=== PATIENT | male | born 1955 | race African-American/Black ===

== ENCOUNTER 2017-04-14 22:23 | Emergency (ER) | payer SELFPAY ==
[~2017-04-14] VITALS: Ht 172.7 cm; Wt 70.0 kg
[~2017-04-14 22:23] MED LIST: MULT-506 PO
[2017-04-14 22:42] VITALS: BP 121/87; PULSE 70; TEMP 36.4; O2SAT 98; Ht 172.7 cm; Wt 70.0 kg
[2017-04-14] MEDS ORDERED: BP MED PO (22:54)
--- NOTE | 2017-04-14 22:57 | DIAGNOSTIC IMAGING REPORT ---
CHEST ONE VIEW PORTABLE CLINICAL HISTORY: Atypical chest pain COMPARISON STUDY: 02/17/2016 FINDINGS: The cardiac and mediastinal contours are normal. There is no evidence of focal pulmonary consolidation. There is no evidence of failure. No pleural effusions are visualized.[ IMPRESSION: No active disease in the chest. Electronically signed by: Ryan Lozoya M.D. 04/14/2017 10:56 PM Dictated Date/Time: 04/14/2017 10:56 PM
--- NOTE | 2017-04-15 00:34 | EMERGENCY ROOM VISIT NOTE ---
History First contact with patient: 22:27 Chief Complaint: ILLNESS Stated Complaint: ILLNESS History of Present Illness The patient is a 61 year old male who presents to the Emergency Room with complaints of nausea. Patient was brought in by EMS as he was stopped by the police for possible swallowing a foreign body and throwing his crack pipe out the window. He was also diaphoretic but now this is resolved. Patient denies any current medical complaints and is demanding to leave. Patient states he had a few alcoholic beverages but does not feel intoxicated. Patient denies chest pain, dyspnea, abdominal pain, fever, chills or any other medical complaints. He denies swallowing any foreign bodies. Review of Systems See HPI for pertinent positives & negatives. A total of 10 systems reviewed and were otherwise negative. Past Medical/Surgical History Medical Problems: (1) Asthma (2) Stomach problems Family History Diabetes mellitus FH: heart disease FHx: cancer Hypertension Social History Smoking Status: Current Every Day Smoker Marital Status: in relationship Housing Status: lives with significant other Occupation Status: employed Current/Historical Medications Scheduled PRN [Bp Med], Unknown Dose PO DAILY PRN for HNT Allergies Coded Allergies: No Known Allergies (Unverified , 08/18/16) Physical Exam Vital Signs Date Time Temp Pulse Resp B/P Pulse Ox O2 Delivery O2 Flow Rate FiO2 04/14/17 22:42 98 Room Air 04/14/17 22:42 36.4 70 20 121/87 98 Room Air 04/14/17 22:42 98 Room Air Physical Exam VITALS: Vitals are noted on the nurse's note and reviewed by myself. Vital signs stable. GENERAL: Poorly kempt -[place] male with EtOH odor, in no acute distress , nondiaphoretic, well-developed well-nourished. SKIN: The skin was without rashes, erythema, edema, or bruising. There is no tenting of the skin. Capillary reflex less than 2 seconds. HEAD: Normocephalic atraumatic. EARS: External auditory canals clear, tympanic membranes pearly varghese without erythema or effusion bilaterally. EYES: Pupils equal round and reactive to light and accommodation. Conjunctivae with injection, sclerae without icterus. Extraocular movements intact. NOSE: Patent, turbinates without inflammation or discharge. MOUTH: Mucous membranes moist. Pharynx without erythema or exudate. Uvula midline. Airway patent. Tongue does not deviate. NECK: Supple without nuchal rigidity. No lymphadenopathy. No thyromegaly. Cervical spine is nontender. No JVD. HEART: Regular rate and rhythm without murmurs gallops or rubs. LUNGS: Clear to auscultation bilaterally without wheezes, rales or rhonchi. No dullness to percussion. No retractions or accessory muscle use. ABDOMEN: Positive bowel sounds x 4. Normal tympanic percussion. Soft, nontender, without masses or organomegaly. Julien sign negative. No guarding or rebound tenderness. MUSCULOSKELETAL: No muscle atrophy, erythema, or edema noted. NEURO: Patient was alert and oriented to person place and time. Normal sensation to light and sharp touch. No focal neurological deficits. Medical Decision & Procedures Laboratory Results Test 04/14/17 22:35 Creatine Kinase MB Ratio (0-3.0) ED Course Prior records/ancillary studies reviewed and summarized above. Nursing notes reviewed. Additional history obtained from EMS The patient's history was concerning for nausea and brought in for evaluation. Differential diagnosis: Etiologies such as also foreign body ingestion, substance abuse, alcohol, toxic , metabolic, infection, hypo/hyperglycemia, electrolyte abnormalities, cardiac sources, intracerebral event, toxicologic, neurologic, as well as others were entertained. Physical examination: As above. ER treatment provided: Patient refused any testing and is demanding to leave On reassessment the patient felt better. Diagnostics interpretation by me: ECG: Normal sinus, normal intervals, no acute ST-T wave changes. Impression normal sinus rhythm interpreted by myself Imaging studies: CHEST ONE VIEW PORTABLE CLINICAL HISTORY: Atypical chest pain COMPARISON STUDY: 02/17/2016 FINDINGS: The cardiac and mediastinal contours are normal. There is no evidence of focal pulmonary consolidation. There is no evidence of failure. No pleural effusions are visualized.[ IMPRESSION: No active disease in the chest. Electronically signed by: Ryan Lozoya M.D. I reviewed the x-ray and concerns whether it is the blood pressure cuff or foreign body on the chest x-ray. Patient was strongly encouraged to stay in the hospital for evaluation and workup and demanded to leave. He understands the risks that he is at risk for heart attack, stroke, , sepsis. He signed out AMA. He was also called several times as it was concerning for possible foreign body ingestion. No contact was made though. The pt informed about the findings as listed above. All questions were answered and pt pleased with the treatment. Return instructions were outlined and the patient was discharged in stable condition. Referral: The patient was referred back to primary care physician for follow-up in 2 to 3 days for a recheck of the current condition. case reviewed with my Attending Medical Decision As above Impression Primary Impression: Nausea Additional Impression: possible swallowed foreign body Departure Information Dispostion Against Medical Advice Condition GOOD Forms WORK / SCHOOL INSTRUCTIONS, HOME CARE DOCUMENTATION FORM, IMPORTANT VISIT INFORMATION Patient Instructions My [employer] [place] Additional Instructions Your are leaving AGAINST MEDICAL ADVICE. You're at risk for infection, , heart attack. You have swallowed a foreign body. You're at risk for perforation and/or sepsis and/or heart attack from this. Recommend that you do not drive as you smell of alcohol. Recommend no drug use. Follow-up with family care doctor tomorrow. Return to the ER at anytime for further workup, chest pain, dyspnea or any other worsening signs or symptoms. Problem Qualifiers
== END 2017-04-14 23:10 | disposition left against medical advice (07) ==
LOC: EDBD 22:23 → C.EDB 22:25
DX: R11.0 Nausea (principal); J45.909 Unspecified asthma, uncomplicated; Z83.3 Family history of diabetes mellitus; Z82.49 Family history of ischemic heart disease and other diseases of the circulatory system

== ENCOUNTER 2017-07-09 11:36 | Emergency (ER) | payer SELFPAY ==
[~2017-07-09] VITALS: Ht 175.3 cm; Wt 80.8 kg
[~2017-07-09 11:36] MED LIST changes: +BP MED PO; -MULT-506 PO
[2017-07-09 11:45] VITALS: TEMP 36.7; Ht 175.3 cm; Wt 80.8 kg
[2017-07-09] MEDS ORDERED: PROPARACAINE HCL 0.5% OP SOLN 15 ML BTL ONE (11:51)
[2017-07-09] MEDS ORDERED: ERYOPO OPL (14:22)
[2017-07-09] MEDS ORDERED: OXYC-57 PO (14:22)
--- NOTE | 2017-07-09 14:24 | EMERGENCY ROOM VISIT NOTE ---
ED Visit Note First contact with patient: 12:17 CHIEF COMPLAINT: Foreign body of the eye HISTORY OF PRESENT ILLNESS: This 61-year-old male patient presents to the emergency department, ambulatory, alone, complaining of pain and foreign body sensation in the left eye. The patient states "a couple of days ago" he was cutting a tree down. He states at that time, he began experiencing a foreign body sensation. The patient was wearing regular glasses at the time, but was not wearing safety glasses. The patient states pain is now getting worse, and she is experiencing some blurry vision. There has been a constant moderate pain and irritation, redness and tearing in the eye. The vision has not been decreased over all. The patient does not wear contacts. The patient rates the pain as 10/10. The patient has not had previous injuries to this eye. Tetanus shot is up to date. The patient does not have an established release of information specialist. REVIEW OF SYSTEMS: A 6 system review of systems was completed with positives and pertinent negatives listed in the HPI. ALLERGIES: None MEDICATIONS: None PMH: None SOCIAL HISTORY: The patient lives locally with family. He admits to smoking one half pack cigarettes per day. The patient denies alcohol or drug use. PHYSICAL EXAM: Vital Signs: Reviewed Nurse's notes, vital signs stable. Visual acuity 20/40 bilaterally. GENERAL: This is a 61-year-old male, in no acute distress, but who is uncomfortable from the eye problem. Well-developed well- nourished. EYES: The pupils are equal round and reactive to light and accommodation. EOMs are full and without tenderness. There is watery discharge from the left eye which is injected. There is and abrasion visible on the cornea with fluorescein stain. There is no obvious foreign body visible under the eyelid after lid eversion. No obvious foreign body was seen embedded in the cornea under slit lamp exam. The cornea was clear and no hyphema was seen. Fluorescein uptake was observed with ultraviolet light significant for a corneal abrasion. EMERGENCY DEPARTMENT COURSE: I examined the patient. Alcaine 2 drops were placed in the patient's left eye. A slit lamp exam was performed as above. Verbal consent was obtained to perform the procedure. Alexandr Lens Irrigation was initiated. The patient did note some improvement in his symptoms after irrigation. No obvious foreign body noted after irrigation on examination. The patient was discharged home in good condition. DIFFERENTIAL DIAGNOSIS: Corneal abrasion, foreign body, conjunctivitis, and others DIAGNOSIS: Foreign body with subsequent corneal abrasion of the left eye DISCHARGE INSTRUCTIONS AND TREATMENT: You have been treated in the Emergency Department today for your Corneal Abrasion. You have been prescribed Percocet to be used for pain control. This is a narcotic medication. You cannot drive or consume alcohol while on this medicine. This medicine should only be used for pain that cannot be controlled with oaad-rge-qmxfode pain medicines. You have been prescribed Erythromycin Opthalmic ointment. This is an antibiotic ointment which will help prevent an infection from developing in your affected eye. You should apply a 1 cm ribbon of the ointment to the lower part of the affected eye up to 6 times per day for the next 10 days. For pain control, you can use the following hwvd-xfx-droyajp medicines (if >12 yo): - Regular strength (325mg/tab) Tylenol (acetaminophen) 2 tabs every 4-6 hours as needed. Do not exceed 12 tablets in a 24 hour period. Avoid taking more than 4 grams (4000 mg) of Tylenol per day. This includes any other sources of acetaminophen you may take on a regular basis. - Regular strength (200 mg/tab) Advil (ibuprofen) 1-2 tabs every 4-6 hours as needed. Do not exceed a dose of 3200 mg per day. You should relax in a quiet, dark place for the rest of the day. You should wear sunglasses while outside for the next few days until your eyes are not as sensitive to the light. You should schedule a follow-up appointment in 2-3 days with your Primary Care Provider or established Eye Doctor ([facility]) for further evaluation and treatment of your Corneal Abrasion. We did schedule you with an release of information specialist appointment. This is scheduled for tomorrow morning at 10:30. Return to the Emergency Department if your current symptoms worsen despite treatment course outlined above, or if you develop any of the following symptoms : intractable pain, visual disturbances, loss of vision, increased redness, swelling, drainage, or if you develop a fever. Problem List Medical Problems: (1) Asthma Status: Chronic (2) Stomach problems Status: Chronic Current/Historical Medications Scheduled Erythromycin Opth (Erythromycin Opth), 0.5 INCH OPL QID Scheduled PRN Oxycodone/Acetaminophen 5MG/325MG (Percocet 5MG/325MG), 1 TAB PO Q4-6H PRN for Pain Allergies Coded Allergies: No Known Allergies (Unverified , 08/18/16) Vital Signs Date Time Temp Pulse Resp B/P (MAP) Pulse Ox O2 Delivery O2 Flow Rate FiO2 07/09/17 14:35 71 18 149/83 98 Room Air 07/09/17 13:02 79 18 142/86 98 Room Air 07/09/17 11:45 36.7 73 18 133/88 97 Room Air Medications Administered Medications (Trade) Dose Ordered Sig/Dawit Route Start Time Stop Time Status Last Admin Dose Admin Proparacaine HCl (Alcaine 0.5% Oph Soln) 225 drops STK-MED ONCE .ROUTE 07/09/17 11:51 07/09/17 11:52 DC 07/09/17 11:51 225 DROPS Departure Information Impression Primary Impression: Corneal abrasion Dispostion Home / Self-Care Condition GOOD Prescriptions Oxycodone/Acetaminophen 5MG/325MG (PERCOCET 5MG/325MG) Tab 1 TAB PO Q4-6H Y for Pain for 2 Days, #12 TAB For Initial Treatment Prov: Sahra Tamayo PA-C 07/09/17 Erythromycin Opth (ERYTHROMYCIN OPTH) 12 Appln/3.5 Gm Oint 0.5 INCH OPL QID for 7 Days, #1 TUBE Prov: Sahra Tamayo PA-C 07/09/17 Referrals Alexandro Gillespie D.O.Int.Med. (PCP) Patient Instructions ED Eye Injury Corneal Abrasion, My [facility] Additional Instructions You have been treated in the Emergency Department today for your Corneal Abrasion. You have been prescribed Percocet to be used for pain control. This is a narcotic medication. You cannot drive or consume alcohol while on this medicine. This medicine should only be used for pain that cannot be controlled with wwea-lad-rnixeab pain medicines. You have been prescribed Erythromycin Opthalmic ointment. This is an antibiotic ointment which will help prevent an infection from developing in your affected eye. You should apply a 1 cm ribbon of the ointment to the lower part of the affected eye up to 6 times per day for the next 10 days. For pain control, you can use the following xzpi-hzu-oupfydm medicines (if >12 yo): - Regular strength (325mg/tab) Tylenol (acetaminophen) 2 tabs every 4-6 hours as needed. Do not exceed 12 tablets in a 24 hour period. Avoid taking more than 4 grams (4000 mg) of Tylenol per day. This includes any other sources of acetaminophen you may take on a regular basis. - Regular strength (200 mg/tab) Advil (ibuprofen) 1-2 tabs every 4-6 hours as needed. Do not exceed a dose of 3200 mg per day. You should relax in a quiet, dark place for the rest of the day. You should wear sunglasses while outside for the next few days until your eyes are not as sensitive to the light. You should schedule a follow-up appointment in 2-3 days with your Primary Care Provider or established Eye Doctor ([facility]) for further evaluation and treatment of your Corneal Abrasion. We did schedule you with an release of information specialist appointment. This is scheduled for tomorrow morning at 10:30. Return to the Emergency Department if your current symptoms worsen despite treatment course outlined above, or if you develop any of the following symptoms : intractable pain, visual disturbances, loss of vision, increased redness, swelling, drainage, or if you develop a fever. Problem Qualifiers Primary Impression: Corneal abrasion Encounter type: initial encounter Laterality: left Qualified Codes: S05.02XA - Injury of conjunctiva and corneal abrasion without foreign body, left eye, initial encounter
[2017-07-09 14:35] VITALS: BP 149/83; PULSE 71; O2SAT 98
== END 2017-07-09 14:43 | disposition home or self-care (01) ==
LOC: C.EDB 11:37 → C.EDD 14:43
DX: S05.02XA Injury of conjunctiva and corneal abrasion without foreign body, left eye, initial encounter (principal); X58.XXXA Exposure to other specified factors, initial encounter; J45.909 Unspecified asthma, uncomplicated; Z87.19 Personal history of other diseases of the digestive system

== ENCOUNTER 2017-07-19 09:35 | Emergency (ER) | payer SELFPAY ==
[~2017-07-19] VITALS: Ht 175.3 cm; Wt 79.3 kg
[~2017-07-19 09:35] MED LIST changes: -BP MED PO; +ERYOPO OPL
[2017-07-19 09:36] VITALS: TEMP 36.4; Ht 175.3 cm; Wt 79.3 kg
[2017-07-19] MEDS ORDERED: OXYC-57 PO (10:25)
[2017-07-19] MEDS ORDERED: VALA1TAB31 PO (10:25)
[2017-07-19] MEDS ORDERED: OXYCODONE/ACETAMINOPHEN 5-325 TAB PO STA (10:27)
[2017-07-19] MEDS ORDERED: CIPROFLOXACIN HCL 0.3% OP SOLN 2.5 ML BTL OP ONE (10:30)
[2017-07-19 11:16] VITALS: BP 127/72; PULSE 88; O2SAT 98
--- NOTE | 2017-07-19 18:40 | EMERGENCY ROOM VISIT NOTE ---
ED Visit Note First contact with patient: 09:46 CHIEF COMPLAINT: Left eye pain HISTORY OF PRESENT ILLNESS: This 61-year-old -Malaysian male patient presents to ER for evaluation of left eye pain that developed 10 days ago. since then there has been a constant moderate pain and irritation, redness and tearing in the eye. Initial onset was after helping a friend cut down a tree. He believes he got sawdust in his eye. He was seen here at that time. He had Alexandr lens irrigation and was found to have a corneal abrasion. No foreign body was found at that time. Ophthalmology appointment was set up for him the next day. He did not go. He thought it would get better on its own. He has been using erythromycin ophthalmic ointment without improvement. Has used all of his Percocet. No involvement of the other eye. There is a mild blurring of vision at times and light significantly bothers the eye. The vision has not been decreased over all. No headache, nausea, or vomiting. Pain is 8/10. A Female friend accompanies him today. No new trauma. Pain is become worse over the last 2 days. REVIEW OF SYSTEM: HEENT: No dizziness, hearing loss, or tinnitus. There is no difficulty swallowing and no oral lesions are present. PULMONARY: No shortness of breath, sputum production or hemoptysis. CARDIOVASCULAR: No chest pain, palpitations, shortness of breath or peripheral edema. GASTROINTESTINAL: No diarrhea, constipation, nausea, vomiting, or abdominal pain. GENITOURINARY: No dysuria, frequency, urgency or nocturia. NEUROLOGIC: No weakness, muscle tenderness, epilepsy or history of neurological problems. MUSCULOSKELETAL: No history of joint tenderness/swelling. No history of arthritis or arthralgias. SKIN: No rashes or lesions. PSYCHIATRIC: No history of depression or mental illness. ENDOCRINE: No history of diabetes, thyroid disorders, or abnormal hair growth. PMH: Supplemental sheet was not completed. Previous surgeries: None Medical history: Benign Current medications: Reviewed and filed in patient's chart Allergies: NKDA SOCIAL HISTORY: Patient lives at home. Positive tobacco use, no EtOH use. Unemployed. PHYSICAL EXAM: Vital Signs: Afebrile. Reviewed and filed in patient's chart. GENERAL: Well-developed, well-nourished, middle-aged -Malaysian male, in obvious discomfort. No acute distress. He is sitting on the bed. Alert and oriented. Skin: Warm and dry with good turgor. No rashes or lesions. No ecchymosis or erythema. The patient is not diaphoretic. No abrasions. No evidence of periorbital cellulitis. HEENT: Normocephalic, atraumatic. The pupils are round, equal, and react to light. EOMs are full. There is discharge of clear tears from the left eye which is also injected. Funduscopic exam of both eyes was unremarkable. Slit lamp examination was performed after Alcaine anesthesia and staining with fluorescein. There is no foreign body visible under the eyelid even after lid eversion. No foreign body was seen embedded in the cornea. The cornea was diffusely irritated with extensive punctate uptake. No hyphema was seen. Anterior chamber is without sediment. Fluorescein uptake was observed at her the central portion of the eye, just inferior to the pupil. A large dendritic lesion is present. There is some cloudiness at the base. I did stain the right eye to evaluate it as well. It is entirely clear and not involved. DIAGNOSIS: Dendritic keratitis left eye. DISCHARGE INSTRUCTIONS AND TREATMENT: Patient was educated regarding today's findings. Conservative care measures were discussed. I did speak with Dr. Samayoa regarding this patient. He would like to see him in the office tomorrow. Patient may call tomorrow for an appointment. He recommended Valtrex 1 g 3 times a day 7 days or until the lesion resolves. He was also prescribed Ciloxan solution to be used one drop in the eye every 6 hours. Start natural tears 2 drops in the eyes every 2 hours while awake. Prescription was provided for Percocet 2 tablets every 6 hours if needed for severe pain. First tablet was given in the ED. Sunglasses and dark rooms will improve comfort. Importance of follow-up tomorrow was discussed at length with the patient. He was reassured that I do not suspect retained foreign body. Problem List Medical Problems: (1) Asthma Status: Chronic (2) Stomach problems Status: Chronic Current/Historical Medications Scheduled Erythromycin Opth (Erythromycin Opth), 0.5 INCH OPL QID Valacyclovir Hcl (Valtrex), 1 TAB PO TID Scheduled PRN Oxycodone/Acetaminophen 5MG/325MG (Percocet 5MG/325MG), 1-2 TABS PO Q6H PRN for Pain Allergies Coded Allergies: No Known Allergies (Unverified , 07/19/17) Vital Signs Date Time Temp Pulse Resp B/P (MAP) Pulse Ox O2 Delivery O2 Flow Rate FiO2 07/19/17 11:16 88 16 127/72 98 07/19/17 09:36 36.4 90 20 144/89 98 Room Air Medications Administered Medications (Trade) Dose Ordered Sig/Dawit Route Start Time Stop Time Status Last Admin Dose Admin Ciprofloxacin HCl (Ciprofloxacin 0.3% Op Soln) 2 drops NOW ONCE OP 07/19/17 10:30 07/19/17 10:31 DC 07/19/17 10:30 2 DROPS Oxycodone/ Acetaminophen (Percocet 5-325mg Tab) 1 tab NOW STAT PO 07/19/17 10:27 07/19/17 10:28 DC 07/19/17 10:27 1 TAB Departure Information Prescriptions Oxycodone/Acetaminophen 5MG/325MG (PERCOCET 5MG/325MG) Tab 1-2 TABS PO Q6H Y for Pain, #15 TAB For Initial Treatment Prov: Laz Palomino,P.A. 07/19/17 Valacyclovir Hcl (VALTREX) 1 Gm Tab 1 TAB PO TID for 7 Days, #21 TAB Prov: Laz Palomino,P.A. 07/19/17 Referrals No Doctor, Assigned (PCP) Patient Instructions My [facility]
== END 2017-07-19 11:19 | disposition home or self-care (01) ==
LOC: C.EDB 09:36
DX: B00.52 Herpesviral keratitis (principal); J45.909 Unspecified asthma, uncomplicated; F17.200 Nicotine dependence, unspecified, uncomplicated

== ENCOUNTER 2017-12-07 10:19 | Emergency (ER) | payer SELFPAY ==
[~2017-12-07] VITALS: Ht 172.7 cm; Wt 82.6 kg
[~2017-12-07 10:19] MED LIST changes: +OXYC-57 PO
[2017-12-07 10:35] VITALS: TEMP 36.3; Ht 172.7 cm; Wt 82.6 kg
[2017-12-07] MEDS ORDERED: KETOROLAC TROMETHAMINE 60 MG/2 ML VIAL IM STA (11:20)
--- NOTE | 2017-12-07 11:28 | EMERGENCY ROOM VISIT NOTE ---
ED Visit Note First contact with patient: 10:47 CHIEF COMPLAINT: Wrist injury HISTORY OF PRESENT ILLNESS: This 61-year-old male patient presents to the emergency department ambulatory, complaining of pain in the right wrist for "a few weeks". The patient does not recall any specific injury, but states he does work a few different jobs. He states he was changing a tire proximally 4 weeks ago, and he believes he may have done something then, but is uncertain. He states the pain is radiating from the wrist into the forearm. He states it also radiates into the hand, but he does not have any point tenderness of the forearm or hand. The patient is able to move their wrist. The patient states the pain is sharp and >10/10. No laceration, no weakness. No numbness or tingling. The patient denies any other injury. The patient is able to move their fingers and elbow without difficulty. The patient has not had a previous fracture to this wrist. The patient has taken nothing for the pain. He is right handed REVIEW OF SYSTEMS: A 6 system review of systems was performed with positives and pertinent negatives in the HPI. ALLERGIES: None MEDICATIONS: None PMH: Hepatitis C SOCIAL HISTORY: The patient lives locally. He denies drug, alcohol, tobacco use. PHYSICAL EXAM: Vital Signs: Reviewed Nurse's notes, vital signs stable. GENERAL : This is a 61 yo black male, in no acute distress, but appears to be in pain, well-developed, well-nourished. NEURO: Alert and oriented to person place and time. Normal sensation to light and sharp touch. MUSCULOSKELETAL: There is no deformity of the right wrist. There is tenderness and edema over the lateral aspect of the wrist. There is mild snuff box tenderness. Range of motion is full , however painful. There is no tenderness of the elbow, hand or fingers. Traveling Engineer strength 5/5. Radial pulse 2+. SKIN: Normal and intact. The hand is warm and well perfused with capillary refill less than 2 seconds. RADIOLOGY: R WRIST W/NAVICULAR MIN 3 VIEWS CLINICAL HISTORY: Right wrist pain and swelling COMPARISON: None. DISCUSSION: No acute fractures or dislocations are visualized. There are no erosive or destructive changes. On the slightly off lateral lateral view, there is a well-corticated ossicle projected superior to the pisiform, IMPRESSION: 1. No acute fractures or dislocations identified 2. No evidence of erosive disease Electronically signed by: Ryan Lozoya M.D. 12/07/2017 11:39 AM Dictated Date/Time: 12/07/2017 11:38 AM EMERGENCY DEPARTMENT COURSE: I examined the patient. He was given 60mg Toradol IM. An X-ray of the right wrist was reviewed by myself and radiologist and showed no acute fracture. A wrist lacer splint was placed under my direction and the position was satisfactory. Neurovascular status rechecked and intact. I discussed home treatment including splint and anti-inflammatory medication. The patient states "Oh, I thought you were going to give me some Percs or Vics to go home with." The patient was given Naproxen 500mg prescription and encouraged to follow-up with his PCP. The patient was discharged home in good condition. I attest that I have personally reviewed the patient's current medication list. Patient was found to have normal blood pressure on screening and does not require follow-up. DIFFERENTIAL DIAGNOSIS: Sprain, strain, fracture, contusion, radiculopathy, nerve impingement, carpal tunnel syndrome, malignancy, and others DIAGNOSIS: Right wrist sprain Problem List Medical Problems: (1) Asthma Status: Chronic (2) Stomach problems Status: Chronic Current/Historical Medications Scheduled Naproxen (Naprosyn), 500 MG PO BID Allergies Coded Allergies: No Known Allergies (Unverified , 12/07/17) Vital Signs Date Time Temp Pulse Resp B/P (MAP) Pulse Ox O2 Delivery O2 Flow Rate FiO2 12/07/17 12:25 75 16 125/76 98 12/07/17 10:35 36.3 89 20 129/99 98 Room Air Medications Administered Medications (Trade) Dose Ordered Sig/Dawit Route Start Time Stop Time Status Last Admin Dose Admin Ketorolac Tromethamine (Toradol Inj) 60 mg NOW STAT IM 12/07/17 11:20 12/07/17 11:21 DC 12/07/17 11:42 60 MG Departure Information Impression Primary Impression: Right wrist sprain Dispostion Home / Self-Care Condition GOOD Prescriptions Naproxen (Naprosyn) 500 Mg Tab 500 MG PO BID, #20 TAB Prov: Sahra Tamayo, PAGavinC 12/07/17 Referrals No Doctor, Assigned (PCP) Patient Instructions ED Carpal Tunnel, ED Sprain Wrist, My [facility] Additional Instructions ORTHOPEDIC INSTRUCTIONS: You were given a prescription for Naproxen 500mg to be taken twice daily. Do not take any other NSAIDs including Naproxen, Aleve, Ibuprofen, Motrin, Advil while taking this medication. Do not take this medication long-term, as long- term use can be associated with gastric ulcers and GI upset. (AND/OR) Acetaminophen(Tylenol) may be used for fever or pain. Use 1000mg every six hours as needed. Avoid using more than 3000mg in a 24 hour period. Ice compresses for 20 minutes at a time four times daily for 2-3 days. Use the splint provided to provide support for the wrist while doing activity which worsens the discomfort. Wear the splint at night. Rest and elevate your injury. Return to the ER immediately for any numbness, tingling, severe pain, extreme swelling in the extremity or as needed. Call [facility], [phone], if no improvement in 7-10 days, to arrange follow up for your injury. Follow-up with your primary care physician in 2 to 3 days for a recheck of your current condition. Problem Qualifiers Primary Impression: Right wrist sprain Encounter type: initial encounter Qualified Codes: S63.501A - Unspecified sprain of right wrist, initial encounter
--- NOTE | 2017-12-07 11:40 | DIAGNOSTIC IMAGING REPORT ---
R WRIST W/NAVICULAR MIN 3 VIEWS CLINICAL HISTORY: Right wrist pain and swelling COMPARISON: None. DISCUSSION: No acute fractures or dislocations are visualized. There are no erosive or destructive changes. On the slightly off lateral lateral view, there is a well-corticated ossicle projected superior to the pisiform, IMPRESSION: 1. No acute fractures or dislocations identified 2. No evidence of erosive disease Electronically signed by: Ryan Lozoya M.D. 12/07/2017 11:39 AM Dictated Date/Time: 12/07/2017 11:38 AM
[2017-12-07] MEDS ORDERED: NAPR-1169 PO (12:12)
[2017-12-07 12:25] VITALS: BP 125/76; PULSE 75; O2SAT 98
== END 2017-12-07 12:25 | disposition home or self-care (01) ==
LOC: C.EDB 10:20 → C.EDD 12:25
DX: S63.501A Unspecified sprain of right wrist, initial encounter (principal); X58.XXXA Exposure to other specified factors, initial encounter; J45.909 Unspecified asthma, uncomplicated